=== PATIENT | female | born 1975 | race Caucasian/White ===

== ENCOUNTER 2025-01-11 00:56 | Emergency (ER) | payer OTHER, SELFPAY ==
--- OUTSIDE RECORDS SUMMARY | 2018-12-07 12:42 | XMS_ITS | Continuity of Care Document ---
Author Organization [facility] Address [address] [place] [address] Phone Care Team Providers Care English Instructor Name Role Phone Marion Webb Unavailable Unavaila ble Allergies, Adverse Reactions, Alerts Substance Reaction Status Criticality codeine Active No Information Medications Medication Instructions Dosage Effective Dates (start - stop) Status Comments 05/08 () 1 mg-20 mcg tablet take 1 tablet by oral route every day 1.00 tablet - Active Prilosec 40 mg capsule,delayed release take 1 capsule by oral route 2 times every day before a meal - Active Problems Condition Type Effective Dates (start - stop) Clini david Status Comments No Known Problems Procedures Procedure Date OFFICE/OUTPATIENT VISIT, EST DESTRUCT B9 LESION, 1-14 PREV VISIT, EST, AGE 40-64 PREV VISIT, EST, AGE 40-64 OFFICE/OUTPATIENT VISIT, EST OFFICE/OUTPATIENT VISIT, EST PREVENTIVE NEW AGE 40-64 URINALYSIS NONAUTO W/O SCOPE Condoms Advance Directives Directive Yes / No Effective Date File Name No Information Encounters Encounter Description Practice Location Reason(s) For Visit Diagnoses Date Provider Providers Copied on Encounter [facility], [address], [place], [id number] , [place] tel:[phone] [facility] No Information 9 Alexander Schultz. [address] [place] [address], [id number] , [place]. tel: [phone] [facility], [address], [place], [id number] , [place] tel: [phone] [facility] No Information 9 [facility]. [address], [place], [id number] , [place]. tel: [phone] OFFICE/OUTPA TIENT VISIT, [facility], [address], [place], [id number] , [place] tel: [phone] [facility] TCA (chief complaint) Condyloma acuminatumBody mass index (BMI) 25.0-25.9, adult [facility]. [address], [place], [id number] , [place]. tel: [phone] PREV VISIT, EST, AGE 40-64 [facility], [address], [place], [id number] , [place] tel: [phone] [facility] annual exam (chief complaint) Encntr screen mammogram for malignant neoplasm of breastEncounter for STD screening- STD liefstyle codeEncounter for general enterprise systems engineer exam with abnormal findingsCondyloma acuminatum 8 [facility]. [address], [place], [id number] , [place]. tel: [phone] OFFICE/OUTPA TIENT VISIT, [facility], [address], [place], [id number] , [place] tel: [phone] [facility] tobacco cessation (chief complaint) Tobacco use 6 Jg Quach. [address] [place] [address], [id number] , [place]. tel: [phone] OFFICE/OUTPA TIENT VISIT, [facility], [address] [place] [address], [id number] , [place] tel: [phone] [facility] contraception (chief complaint) Encounter for repeat prescription for BCP 6 [facility] [place]. [address], [place], [id number] , [place]. tel:[phone] PREVENTIVE NEW AGE 40-64 [facility], [address], [place], [id number] , [place] tel: [phone] [facility] est care (chief complaint)libia al exam (chief complaint)cont raception (chief complaint) Encntr screen mammogram for malignant neoplasm of breastDysuriaEnco unter for general enterprise systems engineer exam with abnormal findingsMenorrhag iaEncounter for initial prescription of contraceptive pillsEncounter for screening for HIVEncounter for STD screeningOther abnormal findings on diagnostic imaging of breastVulvovagini tis [facility]. [address], [place], [id number] , [place]. tel: [phone] Family History Family Member Type Diagnosis Age At Onset Maternal grandmother Problem (finding) Cancer, unknown Payers Payer name Insurance type Covered constitution party ID Authordilia chester(s) Lui SHAUN [id number] Social History Type Description Quantity Date Captured Comments Alcohol Use Details Unknown Caffeine Use Details Unknown Tobacco Use Status No Information Smoking Status No Information Sex Female Sexual Orientation Straight or heterosexual Gender Identity Female Chief Complaint And Reason For Visit No Information Reason For Referral Reason For Referral No Information Plan Of Treatment Date Type Action Status Goal Dietary management education , guidance, and counseling completed Goal Tobacco cessation counseling completed Referral Ordered: MAMMOGRAM, SCREENING ordered History Of Present Illness Encounter Date Complaint History Of Prese nt Illness TCA Patient is here to follow up genital warts annual exam Currently pregna nt: no. : 2. Parity: Term: 1. : 1. Livin. The patient states she uses tubal ligation for control. Last LMP was 04/29/2017. The patient no longer uses tobacco. Tobacco cessation has been discussed. She does not drink alcohol. Additional information: Sylvia is here for annual exam and desires to have TCA treatment for genital warts. States she has noticed the warts return over the past month. Desires to restart OCPs to regulate menses. States she used Chantix to stop smoking and has been smoke free for almost 1 year. 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 tobacco cessation Patient here f or smoking cessation. Desires Chantix. Needs to quit smoking due to work policy. GAVIOTA Davison contraception Pt here for 3 mo [facility] BCP follow up. Is currently on and states it is working well. She states her insurance needs it to be written as the 21 day supply to be covered. GAVIOTA Davison contraception (comments) Patient states she is doing well on , but she started smoking and desires to change to progesterone only pills. Desires appt with PCP to restart chantix as she has used that in the past to stop smoking est care Pt here to est c are due to not having a OBGYN est care (comments) Has a BTL bu t desires OCPs to regulate menses. States her menses last for 10 days and is very heavy and painful. Desires STDs screen to include HIV and RPR. C/O vaginal itching and irritation contraception Has had a tubal ligation, but is requesting BCP to help regulate her periods. annual exam Currently pregna nt: no. : 2. Parity: Term: 1. : 1. Livin. Patient is not contemplating . The patient states she uses tubal ligation for control. Last LMP was 05/19/2015. Her menses is regular. The patient does not use tobacco. She does not drink alcohol. Additional information: Pap and cultures today. Pt is in a relationship that she is going to get out of. She did have a one night fling with somebody and is now having discharge and vaginal pain. Urine obtained. Mammogram order provided to client and she will see if her insurnce covers. GAVIOTA Davison. Functional Status Date Functional Assessmen t No Information Instructions Date Instruction Additional Infor ibis Discussed condyloma in detail and TCA applied today. Encouraged to monitor an if persist RTC for repeat treatment of TCA. Discssed HPV in detail. Related to Condyloma acuminatum Dietary management e ducation, guidance, and counseling Related to Body mass index (BMI) 25.0-25.9, adult Giving encouragement to exercise Related to Body mass index (BMI) 25.0-25.9, adult TCA applied to condy izzy and molluscum today and yashetn tolerated procedure well Related to Condyloma acuminatum Cervical cultures se nt to lab. Patient to call in 1 week for results Related to Encntr screen mammogram for malignant neoplasm of breast Encouraged monthly B SE. Encouraged to keep mammogram appt.Recommend calcium 1000mg QD. Encouraged good dietary intake and exercise. Laboratory specimens sent to lab. Patient to call in 2 weeks if desires results. Related to Encounter for general enterprise systems engineer exam with abnormal findings Discussed OCP in [place] and they are working gfreat to regulate her menses. Since she restarted smoking knows she cannot continue combination OCPs and desires to change at this time. Desires appt with PCP to discuss medication to quit smoking. appt with Dr. Gregorio made. Encouraged to start Maria E after current pack of Junel is complete. Take 1 pill po QD at HS. If misses a pill take it as soon as she remembers and if she misses two pills take two pills one day and two pills the next day. Encouraged condoms to prevent STDs. Related to Encounter for repeat prescription for BCP Encouraged to start terazol 7 as Rx Related to Vulvovaginitis Cervical cultures se nt to lab. Patient to call in 1 week for results. Encouraged condoms to prevent STDs. Condoms given to patient today Related to Encounter for STD screening Encouraged monthly B SE. Recommend calcium 1000mg QD. Encouraged good dietary intake and exercise. Laboratory specimens sent to lab. Patient to call in 2 weeks if desires results. Related to Encounter for general enterprise systems engineer exam with abnormal findings HIV and RPR today decline Hep B/ C Related to Encounter for screening for HIV Encouraged to start Junel for control of heavy menses. Encouraged to start OCPs with the onset of her next menses. Take 1 pill po QD at HS. If misses a pill take it as soon as she remembers and if she misses two pills take two pills one day and two pills the next day. Encouraged condoms for back up BC and to prevent STDs. Related to Menorrhagia Assessments Type Assessment Date No Information Patient Care Teams Name Effective Dates (start - stop) Status Members No Information
[2025-01-11 00:59] VITALS: BP 171/84; PULSE 90; TEMP 36.6; O2SAT 97; BMI 25.1
--- NOTE | 2025-01-11 01:28 | XR_ITS ---
The [address] [address] Patient Name: SOLE SIM MRN: [id number] date: 1975 Sex: F Assigned Patient Location: ER Current Patient Location: Accession/Order Number: [id number] Exam Date: 01/11/2025 01:40 Report Date: 01/11/2025 07:39 At the request of: DANIELLE CORTEZ MD Procedure: XR foot LT min 3V XR foot LT min 3V 01/11/2025 1:48 AM SIGNS AND SYMPTOMS: Left leg pain and swelling PROTOCOL: Frontal, lateral, and oblique radiographs of the left foot COMPARISON: None FINDINGS: There is narrowing of the first metatarsophalangeal joint space. There is cortical erosion along the medial margin of the head of the first metatarsal. There is no fracture or dislocation. There is diffuse soft tissue swelling. XR/XR foot LT min 3V IMPRESSION: No acute bony injury. There is diffuse soft tissue swelling. There is cortical erosion along the medial margin of the head of the first metatarsal. Correlation with history of gout is recommended. Impression dictated by: Raphael Pérez M.D. 01/11/2025 7:39 AM Dictation Location: [place] [address] Electronically authenticated by: [id number] Y Date: 01/11/2025 07:39
--- NOTE | 2025-01-11 01:29 | ED_ITS ---
HPI - Extremity Problem General Chief complaint: Extremity Problem, Nontraumatic Stated complaint: LOWER LEFT EXTREMITY PAIN Time Seen by Provider: 01/11/25 00:59 Source: patient Mode of arrival: Wheelchair Limitations: no limitations History of Present Illness HPI Narrative: This 49-year-old female presents for evaluation of left foot pain, redness and swelling for the past 3 days. [place] felt a stinging sensation in her foot approximately 3 days ago. She does not know if she got bit by a spider or possibly stung by a bee but since that time she has had increasing redness pain and swelling in the left foot. She has had cellulitis in the past. She does not have a history of diabetes. She also complains of left hip pain and has a history of sciatica. She has not had any fever. The patient states she was driving back from the [facility] this morning where she went to visit her son at college and could not tolerate the pain in the left foot. She does not have any left calf pain or swelling. She denies a history of tobacco use. She denies any chest pain or shortness of breath. Related Data Allergies Allergy/AdvReac Type Severity Reaction Status Date / Time codeine Allergy Mild Hives Verified 01/11/25 01:05 Review of Systems ROS Status of ROS 10 or more systems reviewed and unremark able except as noted in history and below PFSH PFSH Social History Little interest or pleasure in doing things: not at all Feeling down, depressed, or hopeless: not at all Exam Narrative Exam Narrative: Vital signs and Nursing Notes reviewed: Patient is afebrile with a normal pulse, blood pressure is elevated 171/84, she is not hypoxic with pulse ox of 97% on room air General: Awake, alert, oriented, nontoxic but tearful at times, no respiratory distress HEENT: Normocephalic atraumatic, mucous membranes are moist and pink, eyes are clear, normal conjunctiva, vision is grossly intact Chest: Lungs are clear to auscultation with good air entry, there is no wheezing rhonchi or rales appreciated no accessory muscle use, patient is speaking in complete sentences-no chest wall tenderness to palpation CVS: Regular rate and rhythm S1-S2, no murmurs rubs or gallops, pulses are brisk and equal bilaterally Extremities: There is redness, mild swelling and exquisite tenderness to the dorsal aspect of the left foot that wraps around medially but is not circumferential. This does not involve the lateral malleolus. Feet are warm and sensate. Capillary refill is normal. Dorsalis pedis and posterior tibialis pulses are brisk and equal bilaterally. There is no swelling to the calf. There is no lymphangitic streaking. There is no notable concerns for the left knee. There is tenderness in the left lateral buttock area. Skin: Skin is normal in appearance with the exception of the left foot where there is redness, swelling and tenderness over the dorsal aspect of the left foot extending medially Neuro: No focal deficits Constitutional Vital Signs, click to edit/add: Last Vital Signs Temp 97.9 F 01/11/25 00:59 Pulse 90 01/11/25 00:59 Resp 18 01/11/25 00:59 BP 171/84 H 01/11/25 00:59 Pulse Ox 97 01/11/25 00:59 O2 Del Method Room Air 01/11/25 00:59 Course Vital Signs Vital signs: Vital Signs Temperature 97.9 F 01/11/25 00:59 Pulse Rate 90 01/11/25 00:59 Respiratory Rate 18 01/11/25 00:59 Blood Pressure 171/84 H 01/11/25 00:59 Pulse Oximetry 97 01/11/25 00:59 Oxygen Delivery Method Room Air 01/11/25 00:59 Temperature 97.9 F 01/11/25 00:59 Pulse Rate 90 01/11/25 00:59 Respiratory Rate 18 01/11/25 00:59 Blood Pressure 171/84 H 01/11/25 00:59 Pulse Oximetry 97 01/11/25 00:59 Oxygen Delivery Method Room Air 01/11/25 00:59 MDM - Extremity (Nontraumatic) MDM Narrative Medical decision making narrative: This 49-year-old female presents for evaluation of left foot pain redness and swelling for the past 3 days. She was out in her yard and felt something sting or bite her. Since that time she has had progressive redness and swelling on the dorsal aspect of her right foot and the medial aspect of her right foot. A line was drawn around this so the patient can follow the development. Multiple attempts at an IV were placed for blood draws and pain medicine and antibiotic administration. After several attempts the patient requested us to stop and requested IM injections. She was given an IM dose of Toradol and Solu-Medrol and oral Augmentin. She will be discharged home with prescription for Augmentin to use for the next 10 days, [place] for pain and Zofran for nausea. I did suggest she follow-up closely with outpatient family medicine and return to the emergency department for worsening symptoms or any concerns. At this time she is afebrile with normal vital signs. There is no lymphangitic streaking, x-ray of the left foot does not show any bony erosion but does show some mild soft tissue swelling. Discharge Plan Discharge Chief Complaint: Extremity Problem, Nontraumatic Clinical Impression: Cellulitis of foot without toes, Sciatica of left side Patient Disposition: Home, Self-Care Time of Disposition Decision: 02:25 Condition: Good Print Language: Jordanian Instructions: Cellulitis (ED), Sciatica (ED) Referrals: Physician,Non-Staff, MD [Primary Care Provider] - 1 week
--- OUTSIDE RECORDS SUMMARY | 2025-01-11 01:49 | XMS_ITS | Encounter Summary ---
Author Organization [facility] Address [address] [place] [address] Phone Care Team Providers Care Event Services Manager Name Role Phone Glenda Hebert MD Primary Care Provide r Macy Naqvi MD Unavailable Marco Agarwal MD Unavailable [phone] Marco Agarwal MD Unavailable [phone] Encounter Details Date Type Department Care Team (Late st Contact Info) Description 02/19/2023 Patient Risk Score ACO Care Management [address] [facility] [address] [place] [address] Social History Tobacco Use Types Packs/Day Years Used Date Smoking Tobacco: Never Assessed Comments Unknown Sex and Gender Information Value Date Recorded Sex Assigned at Not on file Legal Sex Female 4:57 AM EST Gender Identity Not on file Sexual Orientation Not on file documented as of this encounter Plan of Treatment Not on file documented as of this encounter Visit Diagnoses Not on filedocumented in this encounter Care Teams Event Services Manager Relationship Specialty Start Date End Date Glenda Hebert MD [address] [place] [address] PCP - General 08/26/18 [place] [address] [address] [place] [address] PCP - Employee ACO PCP 10/17/22 Marco Agarwal MD [address] [facility], [facility] [address] [place] [address] PCP - Employee ACO PCP 04/19/23 Marco Agarwal MD [address] [facility], [facility] [address] [place] [address] PCP - Employee ACO PCP 03/19/24 documented as of this encounter
--- OUTSIDE RECORDS SUMMARY | 2025-01-11 01:49 | XMS_ITS | Clinical Summary ---
Author Organization [facility] Healthcare Address [address] [place] [address] Care Team Providers Care Power Equipment Technology Instructor Name Role Phone Glenda Hebert MD Unavailable [phone] Allergies Active Allergy Reactions Criticality Noted Date Comments Codeine Dizziness,Hives,GI intolerance High 11/29/2019 Other Reaction(s): hives Medications potassium chloride CR (Klor-Con M20) 20 MEQ ER tabletIndications: Low serum potassium TAKE 1 TABLET BY MOUTH TWICE DAILY WITH FOOD 180 tablet 1 11/04/19 23 Active Additional Information Patient not taking.Reported on 11/01/2024 predniSONE (Deltasone) 50 MG tabletIndications: Chronic low back pain, unspecified back pain laterality, unspecified whether sciatica present TAKE 1 TABLET BY MOUTH ONCE DAILY FOR 5 DAYS 5 tablet 1 11/04/19 23 Active Additional Information Patient not taking.Reported on 11/01/2024 amphetamine-dextro amphetamine (Adderall) 30 MG tablet Instructions: TAKE 1 TABLET BY MOUTH DAILY 08/15/19 25 Active clonazePAM (KlonoPIN) 0.25 MG disintegrating tablet TAKE 1 TABLET BY MOUTH ONCE DAILY NEEDED 02/07/20 24 Active sertraline (Zoloft) 100 MG tablet Take 100 mg by mouth Daily 08/15/19 25 Active traZODone (Desyrel) 50 MG tablet Instructions: TAKE 1 & 1/2 (ONE AND ONE-HALF) TABLETS BY MOUTH NIGHTLY 08/15/19 25 Active cloNIDine (Catapres) 0.1 MG tabletIndications: Elevated blood pressure reading Take 1 tablet (0.1 mg) by mouth 2 (two) times a day as needed for high blood pressure for up to 3 days 6 tablet 08/22/19 25 Active Additional Information Patient not taking.Reported on 11/01/2024 ARIPiprazole (Abilify) 10 MG disintegrating tablet Take 10 mg by mouth Daily Active Encounters Date Type Department Care Team Description 11/03/2024 Telephone [facility] [address] [place] [id number] Jennyfer Roa MA 11/01/2024 4:30 PM EDT Office Visit [facility] [address] [place] [id number] Ben Amezquita DO Skin ulcer, unspecified ulcer stage (HCC); Cellulitis, unspecified cellulitis site 11/01/2024 Travel from Last 3 Months Social History Tobacco Use Types Packs/Day Years Used Date Smoking Tobacco: Never Assessed Comments Unknown Sex and Gender Information Value Date Recorded Sex Assigned at Not on file Legal Sex Female 6:44 PM EDT Gender Identity Not on file Sexual Orientation Not on file Last Filed Vital Signs Vital Sign Reading Time Taken Comments Blood Pressure 118/78 11/01/2024 4:31 PM EDT Pulse 92 11/01/2024 4:31 PM EDT Temperature 37 C (98.6 F) 11/01/2024 4:42 PM EDT Respiratory Rate - - Oxygen Saturation 96% 11/01/2024 4:31 PM EDT Inhaled Oxygen Concentration - - Weight 77.1 kg (170 lb) 11/01/2024 4:31 PM EDT Height 179.1 cm (5' 10.5 ) 03/05/2020 12:[address] Body Mass Index 24.05 03/05/2020 12:00 PM EST Plan of Treatment Not on file Procedures Procedure Name Priority Date/Time Associated Diagnosis Comments DEEP/NON-HEALING WOUND (HTRX) Routine 11/01/2024 4:54 PM EDT Skin ulcer, unspecified ulcer stage (HCC) from Last 3 Months Results * (ABNORMAL) DEEP/NON-HEALING WOUND (HTRX) (11/01/2024 4:54 PM EDT) Pathologist [facility] VARICELLA ZOSTER VIRUS (HUMAN HERPESVIRUS 3) (CHRONIC WOUND/ULCER) 0 23.000 - 31.574 ppm 11/03/2024 1:02 PM EDT [facility] VARICELLA ZOSTER VIRUS (HUMAN HERPESVIRUS 3) (CHRONIC WOUND/ULCER) Not Detected 23.000 - 31.574 ppm 11/03/2024 1:02 PM EDT [facility] STREPTOCOCCUS PYOGENES (GROUP A STREP) (CHRONIC WOUND/ULCER) 19.452(A) 19.961 - 24.689 ppm 11/03/2024 1:02 PM EDT [facility] STREPTOCOCCUS PYOGENES (GROUP A STREP) (CHRONIC WOUND/ULCER) Detected(A) 19.961 - 24.689 ppm 11/03/2024 1:02 PM EDT [facility] STREPTOCOCCUS AGALACTIAE (GROUP B STREP) (CHRONIC WOUND/ULCER) 0 19.961 - 24.689 ppm 11/03/2024 1:02 PM EDT [facility] STREPTOCOCCUS AGALACTIAE (GROUP B STREP) (CHRONIC WOUND/ULCER) Not Detected 19.961 - 24.689 ppm 11/03/2024 1:02 PM EDT [facility] STAPHYLOCOCCUS AUREUS (CHRONIC WOUND/ULCER) 26.169(A) 19.961 - 24.689 ppm 11/03/2024 1:02 PM EDT [facility] STAPHYLOCOCCUS AUREUS (CHRONIC WOUND/ULCER) Detected(A) 19.961 - 24.689 ppm 11/03/2024 1:02 PM EDT [facility] STAPHYLOCOCCUS EPIDERMIDIS, HAEMOLYTICUS, LUGDUNENSIS, SAPROPHYTICUS (CHRON 0 19.961 - 24.689 ppm 11/03/2024 1:02 PM EDT [facility] STAPHYLOCOCCUS EPIDERMIDIS, HAEMOLYTICUS, LUGDUNENSIS, SAPROPHYTICUS (CHRON Not Detected 19.961 - 24.689 ppm 11/03/2024 1:02 PM EDT [facility] PSEUDOMONAS AERUGINOSA (CHRONIC WOUND/ULCER) 0 19.961 - 24.689 ppm 11/03/2024 1:02 PM EDT [facility] PSEUDOMONAS AERUGINOSA (CHRONIC WOUND/ULCER) Not Detected 19.961 - 24.689 ppm 11/03/2024 1:02 PM EDT [facility] PROTEUS MIRABILIS, VULGARIS (CHRONIC WOUND/ULCER) 0 19.961 - 24.689 ppm 11/03/2024 1:02 PM EDT [facility] PROTEUS MIRABILIS, VULGARIS (CHRONIC WOUND/ULCER) Not Detected 19.961 - 24.689 ppm 11/03/2024 1:02 PM EDT [facility] KLEBSIELLA PNEUMONIAE, OXYTOCA (CHRONIC WOUND/ULCER) 0 19.961 - 24.689 ppm 11/03/2024 1:02 PM EDT [facility] KLEBSIELLA PNEUMONIAE, OXYTOCA (CHRONIC WOUND/ULCER) Not Detected 19.961 - 24.689 ppm 11/03/2024 1:02 PM EDT [facility] ESCHERICHIA COLI (CHRONIC WOUND/ULCER) 0 19.961 - 24.689 ppm 11/03/2024 1:02 PM EDT [facility] ESCHERICHIA COLI (CHRONIC WOUND/ULCER) Not Detected 19.961 - 24.689 ppm 11/03/2024 1:02 PM EDT [facility] CLOSTRIDIUM PERFRINGENS, NOVYI, SEPTICUM (CHRONIC WOUND/ULCER) 0 19.961 - 24.689 ppm 11/03/2024 1:02 PM EDT [facility] CLOSTRIDIUM PERFRINGENS, NOVYI, SEPTICUM (CHRONIC WOUND/ULCER) Not Detected 19.961 - 24.689 ppm 11/03/2024 1:02 PM EDT [facility] CUTIBACTERIUM (PROPIONIBACTERIUM) ACNES (CHRONIC WOUND/ULCER) 0 19.961 - 24.689 ppm 11/03/2024 1:02 PM EDT [facility] CUTIBACTERIUM (PROPIONIBACTERIUM) ACNES (CHRONIC WOUND/ULCER) Not Detected 19.961 - 24.689 ppm 11/03/2024 1:02 PM EDT [facility] BACTEROIDES FRAGILIS, VULGATUS (CHRONIC WOUND/ULCER) 0 19.961 - 24.689 ppm 11/03/2024 1:02 PM EDT [facility] BACTEROIDES FRAGILIS, VULGATUS (CHRONIC WOUND/ULCER) Not Detected 19.961 - 24.689 ppm 11/03/2024 1:02 PM EDT [facility] CORYNEBACTERIUM JEIKEIUM, STRIATUM, TUBERCULOSTEARICUM (CHRONIC WOUND/ULCER 26.985(A) 19.961 - 24.689 ppm 11/03/2024 1:02 PM EDT [facility] CORYNEBACTERIUM JEIKEIUM, STRIATUM, TUBERCULOSTEARICUM (CHRONIC WOUND/ULCER Detected(A) 19.961 - 24.689 ppm 11/03/2024 1:02 PM EDT [facility] VIBRIO CHOLERAE, PARAHAEMOLYTICUS, VULNIFICUS (CHRONIC WOUND/ULCER) 0 23.000 - 31.311 ppm 11/03/2024 1:02 PM EDT [facility] VIBRIO CHOLERAE, PARAHAEMOLYTICUS, VULNIFICUS (CHRONIC WOUND/ULCER) Not Detected 23.000 - 31.311 ppm 11/03/2024 1:02 PM EDT [facility] ENTEROCOCCUS FAECALIS, FAECIUM (CHRONIC WOUND/ULCER) 0 19.961 - 24.689 ppm 11/03/2024 1:02 PM EDT [facility] ENTEROCOCCUS FAECALIS, FAECIUM (CHRONIC WOUND/ULCER) Not Detected 19.961 - 24.689 ppm 11/03/2024 1:02 PM EDT [facility] ENTEROBACTER CLOACAE COMPLEX, KLEBSIELLA (ENTEROBACTER) AEROGENES (CHRONIC 0 19.961 - 24.689 ppm 11/03/2024 1:02 PM EDT [facility] ENTEROBACTER CLOACAE COMPLEX, KLEBSIELLA (ENTEROBACTER) AEROGENES (CHRONIC Not Detected 19.961 - 24.689 ppm 11/03/2024 1:02 PM EDT [facility] SERRATIA MARCESCENS (CHRONIC WOUND/ULCER) 0 19.961 - 24.689 ppm 11/03/2024 1:02 PM EDT [facility] SERRATIA MARCESCENS (CHRONIC WOUND/ULCER) Not Detected 19.961 - 24.689 ppm 11/03/2024 1:02 PM EDT [facility] CITROBACTER FREUNDII (CHRONIC WOUND/ULCER) 0 19.961 - 24.689 ppm 11/03/2024 1:02 PM EDT [facility] CITROBACTER FREUNDII (CHRONIC WOUND/ULCER) Not Detected 19.961 - 24.689 ppm 11/03/2024 1:02 PM EDT [facility] ACINETOBACTER BAUMANNII (CHRONIC WOUND/ULCER) 0 19.961 - 24.689 ppm 11/03/2024 1:02 PM EDT [facility] ACINETOBACTER BAUMANNII (CHRONIC WOUND/ULCER) Not Detected 19.961 - 24.689 ppm 11/03/2024 1:02 PM EDT [facility] HERPES SIMPLEX VIRUS 1 0 23.000 - 31.899 ppm 11/03/2024 1:02 PM EDT [facility] HERPES SIMPLEX VIRUS 1 Not Detected 23.000 - 31.899 ppm 11/03/2024 1:02 PM EDT [facility] HERPES SIMPLEX VIRUS 2 0 23.000 - 31.675 ppm 11/03/2024 1:02 PM EDT [facility] HERPES SIMPLEX VIRUS 2 Not Detected 23.000 - 31.675 ppm 11/03/2024 1:02 PM EDT [facility] P. ANAEROBIUS, P. ASACCAROLYTICUS, F. MAGNA, A. PREVOTII 0 19.961 - 24.689 ppm 11/03/2024 1:02 PM EDT [facility] P. ANAEROBIUS, P. ASACCAROLYTICUS, F. MAGNA, A. PREVOTII Not Detected 19.961 - 24.689 ppm 11/03/2024 1:02 PM EDT [facility] Wound 11/01/2024 4:54 PM EDT 11/03/2024 3:08 AM EDT us Ben Amezquita DO LAB BLOOD ORDERABLES Final Result [facility] [address] [place] [address] from Last 3 Months Insurance [employer] Care Teams Power Equipment Technology Instructor Relationship Specialty Start Date End Date Glenda Hebert MD [address] [place] [address] Referring Physician Family Medicine 08/21/24
--- OUTSIDE RECORDS SUMMARY | 2025-01-11 01:49 | XMS_ITS | Encounter Summary ---
Author Organization [facility] Address [address] [place] [place] [address] Care Team Providers Care Supervisory Geographer Name Role Phone Glenda Hebert MD Unavailable [phone] Reason for Visit * Reason Comments Med Change Request Encounter Details Date Type Department Care Team (Late st Contact Info) Description 08/21/2024 Refill [facility] [address] [facility] [address] [place] [phone] Chang Rajan DO [address] [facility] [address] [place] [address] Cellulitis of left lower extremity Social History Tobacco Use Types Packs/Day Years Used Date Smoking Tobacco: Never Assessed Comments Unknown Sex and Gender Information Value Date Recorded Sex Assigned at Not on file Legal Sex Female 6:44 PM EDT Gender Identity Not on file Sexual Orientation Not on file documented as of this encounter Miscellaneous Notes * Telephone Encounter - Chang Rajan DO - 08/22/2024 9:10 AM EDT Yes it is okay to change that documented in this encounter Plan of Treatment Not on file documented as of this encounter Visit Diagnoses Diagnosis Cellulitis of left lower extremity documented in this encounter Care Teams Supervisory Geographer Relationship Specialty Start Date End Date Glenda Hebert MD [address] [facility] [place] [address] Referring Physician Family Medicine 08/21/24 documented as of this encounter
--- OUTSIDE RECORDS SUMMARY | 2025-01-11 01:49 | XMS_ITS | Encounter Summary ---
Author Organization [facility] Address [address] [place] [address] Phone Care Team Providers Care Synthetic Chemist Name Role Phone Glenda Hebert MD Primary Care Provide r Macy Naqvi MD Unavailable [phone] Marco Agarwal MD Unavailable [phone] Marco Agarwal MD Unavailable [phone] Encounter Details Date Type Department Care Team (Late st Contact Info) Description 03/21/2023 Patient Risk Score ACO Care Management [address] [facility] [address] [place] [address] Social History Tobacco Use Types [...] on filedocumented in this encounter Care Teams Synthetic Chemist Relationship Specialty Start Date End Date Glenda Hebert MD [address] [place] [address] PCP - General 08/26/18 [place] [address] [place] [address] PCP - Employee ACO PCP 10/17/22 Marco Agarwal MD [address] [facility], [facility] [address] [place] [address] PCP - Employee ACO PCP 04/19/23 Marco Agarwal MD [address] [facility], [facility] [address] [place] [address] PCP - Employee ACO PCP 03/19/24 documented as of this encounter
--- OUTSIDE RECORDS SUMMARY | 2025-01-11 01:49 | XMS_ITS | Encounter Summary ---
Author Organization [facility] Address [address] [place] [address] Phone Care Team Providers Care Rn Procedure Name Role Phone Glenda Hebert MD Primary Care Provide r Macy Naqvi MD Unavailable Marco Agarwal MD Unavailable [phone] Marco Agarwal MD Unavailable [phone] Encounter Details Date Type Department Care Team (Late st Contact Info) Description 11/19/2022 Patient Risk Score ACO Care Management [address] [facility] [address] [place] [address] Social History Tobacco Use Types [...] on filedocumented in this encounter Care Teams Rn Procedure Relationship Specialty Start Date End Date Glenda Hebert MD [address] [place] [address] PCP - General 08/26/18 [place] [address] [place] [address] PCP - Employee ACO PCP 10/17/22 Marco Agarwal MD [address] [facility], [facility] [address] [place] [address] PCP - Employee ACO PCP 04/19/23 Marco Agarwal MD [address] [facility], [facility] [address] [place] [address] PCP - Employee ACO PCP 03/19/24 documented as of this encounter
--- OUTSIDE RECORDS SUMMARY | 2025-01-11 01:49 | XMS_ITS | Clinical Summary ---
Author Organization [facility] Address [address] [place] [address] Phone Care Team Providers Care Honeycomb Blanket Maker Name Role Phone Glenda Hebert MD Primary Care Provide r Allergies Active Allergy Reactions Criticality Noted Date Comments Codeine Dizziness,Hives,Nausea/vomiting 11/17 Medications traZODone (Desyrel) 150 mg tablet TAKE 1 TABLET BY MOUTH EVERY EVENING 30 tablet 2 08/17/2022 Active omeprazole (PriLOSEC) [address] capsule TAKE 1 CAPSULE BY MOUTH ONCE DAILY 120 capsule 07/30/2022 Active gabapentin (Neurontin) 300 mg capsuleIndicati ons:Sciatica of left side Take 1 capsule (300 mg) by mouth once daily for 7 days. 7 capsule 09/28/2023 3:24 PM EDT 09/28/2023 Active estradiol (Estrace) 1 mg tabletIndicatio ns:Vasomotor flushing Take 1 tablet (1 mg) by mouth once daily. 90 tablet 3 11/22/2023 1:26 PM EDT 11/17/2023 Active estradiol (Estrace) 0.01 % (0.1 mg/gram) vaginal creamIndication s:Dysuria Apply a pea sized amount of cream to vulva nightly. 34 g 3 12/14/2023 Active Social History Tobacco Use Types Packs/Day Years Used Date Smoking Tobacco: Every Day Cigarettes Smokeless Tobacco: Never Tobacco Cessation:Ready to Q uit: Not Asked; Counseling Given: Not Answered Alcohol Use Standard Drinks/Week Comments Never 0 (1 standard drink = 0.6 oz pur e alcohol) Comments No Sex and Gender Information Value Date Recorded Sex Assigned at Not on file Legal Sex Female 4:57 AM EST Gender Identity Not on file Sexual Orientation Not on file Last Filed Vital Signs Vital Sign Reading Time Taken Comments Blood Pressure 147/77 11/23/2023 7:48 AM EDT Pulse 85 11/23/2023 7:48 AM EDT Temperature 36.7 C (98.1 F) 11/23/2023 7:48 AM EDT Respiratory Rate 16 11/23/2023 8:39 AM EDT Oxygen Saturation 96% 11/23/2023 8:39 AM EDT Inhaled Oxygen Concentration - - Weight 74.8 kg (165 lb) 11/23/2023 7:48 AM EDT Height 177.8 cm (5' 10 ) 11/23/2023 7:48 AM EDT Body Mass Index 23.68 11/23/2023 7:48 AM EDT Plan of Treatment Health Maintenance Due Date Last Done Comments CT Colonography 1974 FIT-DNA (Cologuard) 1974 FIT 1975 HIV Screening 1975 Lipid Panel 1974 Sigmoidoscopy 1974 Yearly Adult Physical 1974 MMR Vaccines (1 of 1 - Standard series) 1975 Hepatitis C Screening 02/14/1992 Hepatitis B Vaccines (1 of 3 - 19+ 3-dose series) 1993 Pneumococcal Vaccine (1 of 2 - PCV) 1993 Cervical Cancer Screening 1995 HPV/Cotest 1995 Pap Smear 1995 DTaP/Tdap/Td Vaccines (1 - Tdap) 02/14/1996 Mammogram 06/06/2022 06/06/2021, 06/06/2021 Zoster Vaccines (1 of 2) 02/14/2024 COVID-19 Vaccine (1 - 2023-2 5 season) 2024 Influenza Vaccine (#1) 2024 01/22/2020 Colonoscopy 07/11/2032 07/11/2022, 07/11/2022, 07/11/2022 Colorectal Cancer Screening 07/11/2032 Irritable Bowel Syndrome Discontinued 023, 07/11/2022 HIB Vaccines Aged Out No longer eligi ble based on patient's age to complete this topic HPV Vaccines Aged Out No longer eligi ble based on patient's age to complete this topic Hepatitis A Vaccines Aged Out No long er eligible based on patient's age to complete this topic IPV Vaccines Aged Out No longer eligi ble based on patient's age to complete this topic Meningococcal Vaccine Aged Out No todd liang eligible based on patient's age to complete this topic Rotavirus Vaccines Aged Out No longer eligible based on patient's age to complete this topic Medical Devices Implanted Type Area Sheet Metal Supervisor Device Identifier Shelf Expiration Date Model / Serial / Lot Sling System, Mid Uretheral, [employer] Suprapubic Case [id number] Implanted:Qty: 1 on 03/19/2020 by Ziggy Landa MD General Urology [employer] 10/17/2022 [id number] / / [id number] Description:Converted from [facility] Acute. Please see archived information for full log information. Procedures Procedure Name Priority Date/Time Associated Diagnosis Comments COLONOSCOPY Routine 07/11/2022 8:14 AM EDT DIGITAL MAMM SCREENING Routine 06/06/2021 4:29 PM EST Encounter for screening mammogram for malignant neoplasm of breast from Last 3 Months or Most Recently Relevant to Health Maintenance Results * Colonoscopy (07/11/2022 8:14 AM EDT) Anatomical Region Laterality Modality Endoscopy 07/11/2022 8:14 AM EDT Narrative 10/02/2022 11:46 PM EDT Patient Name: Karina Lugo Procedure Date: 07/11/2022 8:14 AM Date of : 1975 Admit Type: Outpatient Site: [facility] (Former[facility]) Room 2 Ethnicity: Not or Race: White Attending MD: Haylee العلي MD, [id number] Procedure: Colonoscopy Indications: Screening for colorectal malignant neoplasm, This is the patient's first colonoscopy Patient Profile: This is a 47 year old female. Outpatient Colonoscopy Providers: Haylee العلي MD (Doctor) Gastroenterology, Olga Dyer RN (Nurse) , Jennie Watts, Livery Car Driver Referring: Glenda Hebert Medicines: Monitored Anesthesia Care Complications: No immediate complications. Procedure: Pre-Anesthesia Assessment: - Prior Aspirin/ NSAID therapy: The patient has taken no aspirin or NSAID medications. - Prior to the procedure, a History and Physical was performed, and patient medications and allergies were reviewed. The patient's tolerance of previous anesthesia was also reviewed. The risks and benefits of the procedure and the sedation options and risks were discussed with the patient. All questions were answered, and informed consent was obtained. ASA Grade Assessment: II - A patient with mild systemic disease. After reviewing the risks and benefits, the patient was deemed in satisfactory condition to undergo the procedure. After I obtained informed consent, the scope was passed under direct vision. Throughout the procedure, the patient's blood pressure, pulse, and oxygen saturations were monitored continuously. The pediatric colonoscope was introduced through the anus and advanced to the cecum, identified by appendiceal orifice and ileocecal valve. The colonoscopy was performed without difficulty. The patient tolerated the procedure well. The quality of the bowel preparation was good. The quality of the bowel preparation was evaluated using the BBPS ([place] Bowel Preparation Scale) with scores of: Right Colon = 3, Transverse Colon = 3 and Left Colon = 3 (entire mucosa seen well with no residual staining, small fragments of stool or opaque liquid). The total BBPS score equals 9. The terminal ileum, ileocecal valve, appendiceal orifice, and rectum were photographed. Findings: No masses on digital rectal exam The terminal ileum appeared normal. External hemorrhoids were found during retroflexion. Two sessile polyps were found in the cecum. The polyps were 8 to 10 mm in size. These polyps were removed with a cold snare. Resection and retrieval were complete. The pathology specimen was placed into Bottle A. A 10 mm polyp was found in the ascending colon. The polyp was sessile. The polyp was removed with a piecemeal technique using a cold snare. Resection and retrieval were complete. The pathology specimen was placed into Bottle B. To prevent bleeding after the polypectomy, one hemostatic clip was successfully placed. There was no bleeding at the end of the procedure. A 10 mm polyp was found in the hepatic flexure. The polyp was sessile. The polyp was removed with a cold snare. Resection and retrieval were complete. The pathology specimen was placed into Bottle C. Two sessile polyps were found in the transverse colon. The polyps were 6 to 7 mm in size. These polyps were removed with a cold snare. Resection and retrieval were complete. The pathology specimen was placed into Bottle D. There was a large lipoma, in the ascending colon. Estimated Blood Loss: Estimated blood loss was minimal. Impression: - The examined portion of the ileum was normal. - External hemorrhoids. - Two 8 to 10 mm polyps in the cecum, removed with a cold snare. Resected and retrieved. - One 10 mm polyp in the ascending colon, removed piecemeal using a cold snare. Resected and retrieved. Clip was placed. - One 10 mm polyp at the hepatic flexure, removed with a cold snare. Resected and retrieved. - Two 6 to 7 mm polyps in the transverse colon, removed with a cold snare. Resected and retrieved. - Large lipoma in the ascending colon. Recommendation: - Patient has a contact number available for emergencies. The signs and symptoms of potential delayed complications were discussed with the patient. Return to normal activities tomorrow. Written discharge instructions were provided to the patient. - Low residue diet for 2 days. - Continue present medications. - No aspirin, ibuprofen, naproxen, or other non-steroidal anti-inflammatory drugs for 7 days after polyp removal. - Await pathology results. - Repeat colonoscopy in 3 years for surveillance based on pathology results. - Return to primary care physician. Procedure Code(s): --- Professional --- 54588, Colonoscopy, flexible; with removal of tumor(s), polyp(s), or other lesion(s) by snare technique Diagnosis Code(s): --- Professional --- Z12.11, Encounter for screening for malignant neoplasm of colon K64.4, Residual hemorrhoidal skin tags D12.0, Benign neoplasm of cecum D12.3, Benign neoplasm of transverse colon (hepatic flexure or splenic flexure) D12.2, Benign neoplasm of ascending colon D17.5, Benign lipomatous neoplasm of intra-abdominal organs CPT copyright 2021 [employer]. All rights reserved. The codes documented in this report are preliminary and upon health care coach review may be revised to meet current compliance requirements. Attending Participation: I personally performed the entire procedure. Haylee العلي MD 07/11/2022 9:51:28 AM This report has been signed electronically. Number of Addenda: 0 Note Initiated On: 07/11/2022 8:14 AM Scope Withdrawal Time 0 hours 17 minutes 39 seconds Total Procedure Duration Time 0 hours 21 minutes 8 seconds Procedure Note Haylee العلي MD - 03/14/2024 Patient Name: Karina Lugo Procedure Date: 07/11/2022 8:14 AM Date of : 1975 Admit Type: Outpatient Site: [facility] ([facility] Room 2 Ethnicity: Not or Race: White Attending MD: Haylee العلي MD, [id number] Procedure: Colonoscopy Indications: Screening for colorectal malignant neoplasm, Thisis the patient's first colonoscopy Patient Profile: This is a 47 year old female. OutpatientColonoscopy Providers: Haylee العلي MD (Doctor) Gastroenterology,Olga Dyer RN (Nurse) , Jennie Watts, Livery Car Driver Referring: Glenda Hebert Medicines: Monitored Anesthesia Care Complications: No immediate complications. Procedure: Pre-Anesthesia Assessment: - Prior Aspirin/ NSAID therapy: The patient hastaken no aspirin or NSAID medications. - Prior to the procedure, a History and Physicalwas performed, and patient medications and allergieswere reviewed. The patient's tolerance of previous anesthesia was also reviewed. The risks andbenefits of the procedure and the sedation options and risks were discussed with the patient. All questions were answered, and informed consent was obtained. ASAGrade Assessment: II - A patient with mild systemicdisease. After reviewing the risks and benefits, the patient was deemed in satisfactory condition to undergo the procedure. After I obtained informed consent, the scope was passed under direct vision. Throughout theprocedure, the patient's blood pressure, pulse, and oxygen saturations were monitored continuously. Thepediatric colonoscope was introduced through the anus and advanced to the cecum, identified by appendiceal orifice and ileocecal valve. The colonoscopy was performed without difficulty. The patient tolerated the procedure well. The quality of the bowel preparation was good. The quality of the bowel preparation was evaluated using the BBPS ([place]Bowel Preparation Scale) with scores of: Right Colon = 3, Transverse Colon = 3 and Left Colon = 3 (entiremucosa seen well with no residual staining, smallfragments of stool or opaque liquid). The total BBPS score equals 9. The terminal ileum, ileocecal valve, appendiceal orifice, and rectum werephotographed. Findings: No masses on digital rectal exam The terminal ileum appeared normal. External hemorrhoids were found during retroflexion. Two sessile polyps were found in the cecum. The polyps were 8 to 10mm in size. These polyps were removed with a cold snare. Resection and retrieval were complete. The pathology specimen was placed intoBottle A. A 10 mm polyp was found in the ascending colon. The polyp wassessile. The polyp was removed with a piecemeal technique using a cold snare. Resection and retrieval were complete. The pathology specimen wasplaced into Bottle B. To prevent bleeding after the polypectomy, onehemostatic clip was successfully placed. There was no bleeding at the end of the procedure. A 10 mm polyp was found in the hepatic flexure. The polyp wassessile. The polyp was removed with a cold snare. Resection and retrieval were complete. The pathology specimen was placed into Bottle C. Two sessile polyps were found in the transverse colon. The polypswere 6 to 7 mm in size. These polyps were removed with a cold snare.Resection and retrieval were complete. The pathology specimen was placed into Bottle D. There was a large lipoma, in the ascending colon. Estimated Blood Loss: Estimated blood loss was minimal. Impression: - The examined portion of the ileum was normal. - External hemorrhoids. - Two 8 to 10 mm polyps in the cecum, removed witha cold snare. Resected and retrieved. - One 10 mm polyp in the ascending colon, removed piecemeal using a cold snare. Resected andretrieved. Clip was placed. - One 10 mm polyp at the hepatic flexure, removedwith a cold snare. Resected and retrieved. - Two 6 to 7 mm polyps in the transverse colon, removed with a cold snare. Resected andretrieved. - Large lipoma in the ascending colon. Recommendation: - Patient has a contact number available for emergencies. The signs and symptoms of potential delayed complications were discussed with thepatient. Return to normal activities tomorrow. Written discharge instructions were provided to thepatient. - Low residue diet for 2 days. - Continue present medications. - No aspirin, ibuprofen, naproxen, or other non-steroidal anti-inflammatory drugs for 7 daysafter polyp removal. - Await pathology results. - Repeat colonoscopy in 3 years for surveillancebased on pathology results. - Return to primary care physician. Procedure Code(s): --- Professional --- 85270, Colonoscopy, flexible; with removal of tumor(s), polyp(s), or other lesion(s) by snare technique Diagnosis Code(s): --- Professional --- Z12.11, Encounter for screening for malignantneoplasm of colon K64.4, Residual hemorrhoidal skin tags D12.0, Benign neoplasm of cecum D12.3, Benign neoplasm of transverse colon (hepatic flexure or splenic flexure) D12.2, Benign neoplasm of ascending colon D17.5, Benign lipomatous neoplasm ofintra-abdominal organs CPT copyright 2021 [employer]. All rights reserved. The codes documented in this report are preliminary and upon health care coach reviewmay be revised to meet current compliance requirements. Attending Participation: I personally performed the entire procedure. Haylee العلي MD 07/11/2022 9:51:28 AM This report has been signed electronically. Number of Addenda: 0 Note Initiated On: 07/11/2022 8:14 AM Scope Withdrawal Time 0 hours 17 minutes 39 seconds Total Procedure Duration Time 0 hours 21 minutes 8 seconds us Glenda Hebert MD ENDOSCOPY PROCEDURE O RDERABLES Edited Result - Final * DIGITAL MAMM SCREENING (06/06/2021 4:29 PM EST) Anatomical Region Laterality Modality Mammography Narrative 06/09/2021 3:46 PM EST Patient Name: KARINA LUGO STUDY: DIGITAL SCREENING BILATERAL MAMMOGRAM WITH BREAST TOMOSYNTHESIS AND WITH CAD; 06/06/2021 4:29 pm INDICATION: Routine screening. COMPARISON: 05/28/2017 ACCESSION NUMBER(S): [id number] ORDERING CLINICIAN: ZIGGY LANDA FINDINGS: 2D and tomosynthesis images were reviewed at 1 mm slice thickness. Images were obtained in MLO and CC projections. The breast tissue is heterogeneously dense, which may obscure small masses. No suspicious masses or calcifications are identified. There are stable areas of asymmetry bilaterally. This study was interpreted with CAD. IMPRESSION: No mammographic evidence of malignancy. BI-RADS CATEGORY: Category: 1 - Negative. Recommendation: 1 Year Screening. Procedure Note Sukhwinder Mario MD - 06/01/2022 Patient Name: KARINA LUGO STUDY: DIGITAL SCREENING BILATERAL MAMMOGRAM WITH BREAST TOMOSYNTHESIS AND WITH CAD; 06/06/2021 4:29 pm INDICATION: Routine screening. COMPARISON: 05/28/2017 ACCESSION NUMBER(S): [id number] ORDERING CLINICIAN: ZIGGY LANDA FINDINGS: 2D and tomosynthesis images were reviewed at 1 mm slice thickness. Images were obtained in MLO and CC projections. The breast tissue is heterogeneously dense, which may obscure small masses. No suspicious masses or calcifications are identified. There are stable areas of asymmetry bilaterally. This study was interpreted with CAD. IMPRESSION: No mammographic evidence of malignancy. BI-RADS CATEGORY: Category: 1 - Negative. Recommendation: 1 Year Screening. Ziggy Landa MD IMG BI PROCEDURES Final Re sult from Last 3 Months or Most Recently Relevant to Health Maintenance Insurance [employer]OYEE [employer] Care Teams Honeycomb Blanket Maker Relationship Specialty Start Date End Date Glenda Hebert MD [address] [place] [address] PCP - General 08/26/18
--- OUTSIDE RECORDS SUMMARY | 2025-01-11 01:49 | XMS_ITS | Encounter Summary ---
Author Organization [facility] Address [address] [place] [address] Phone Care Team Providers Care Physician Primary Care Sports Medicine Name Role Phone Glenda Hebert MD Primary Care Provide r Marco Agarwal MD Unavailable [phone] Marco Agarwal MD Unavailable [phone] Encounter Details Date Type Department Care Team (Late st Contact Info) Description 04/21/2023 Patient Risk Score ACO Care Management [address] [facility] [address] [place] [address] Social History Tobacco Use Types [...] on filedocumented in this encounter Care Teams Physician Primary Care Sports Medicine Relationship Specialty Start Date End Date Glenda Hebert MD [address] [place] [address] PCP - General 08/26/18 Marco Agarwal MD [address] [facility] [address] [place] [address] PCP - Employee ACO PCP 04/19/23 Marco Agarwal MD [address] [facility] [address] [place] [address] PCP - Employee ACO PCP 03/19/24 documented as of this encounter
--- OUTSIDE RECORDS SUMMARY | 2025-01-11 01:49 | XMS_ITS | Encounter Summary ---
Author Organization [facility] Address [address] [place] [address] Phone Care Team Providers Care Insulation Batting Machine Operator Name Role Phone Glenda Hebert MD Primary Care Provide r Marco Agarwal MD Unavailable [phone] Marco Agarwal MD Unavailable [phone] Encounter Details Date Type Department Care Team (Late st Contact Info) Description 05/23/2023 Patient Risk Score ACO Care Management [address] [facility] [address] [place] [address] Social History Tobacco Use Types [...] on filedocumented in this encounter Care Teams Insulation Batting Machine Operator Relationship Specialty Start Date End Date Glenda Hebert MD [address] [place] [address] PCP - General 08/26/18 Marco Agarwal MD [address] [facility], [facility] [address] [place] [address] PCP - Employee ACO PCP 04/19/23 Marco Agarwal MD [address] [facility] [address] [place] [address] PCP - Employee ACO PCP 03/19/24 documented as of this encounter
--- OUTSIDE RECORDS SUMMARY | 2025-01-11 01:49 | XMS_ITS | Encounter Summary ---
Author Organization [facility] Address [address] [place] [address] Phone Care Team Providers Care Assistant Child Care Teacher Name Role Phone Glenda Hebert MD Primary Care Provide r Marco Agarwal MD Unavailable [phone] Marco Agarwal MD Unavailable [phone] Encounter Details Date Type Department Care Team (Late st Contact Info) Description 07/22/2023 Patient Risk Score ACO Care Management [address] [facility] [address] [place] [address] Social History Tobacco Use Types [...] on filedocumented in this encounter Care Teams Assistant Child Care Teacher Relationship Specialty Start Date End Date Glenda Hebert MD [address] [place] [address] PCP - General 08/26/18 Marco Agarwal MD [address] [facility], [facility] [address] [place] [address] PCP - Employee ACO PCP 04/19/23 Marco Agarwal MD [address] [facility] [address] [place] [address] PCP - Employee ACO PCP 03/19/24 documented as of this encounter
--- OUTSIDE RECORDS SUMMARY | 2025-01-11 01:49 | XMS_ITS | Encounter Summary ---
Author Organization [facility] Address [address] [place] [address] Phone Care Team Providers Care Doweling Machine Operator Name Role Phone Glenda Hebert MD Primary Care Provide r Marco Agarwal MD Unavailable [phone] Marco Agarwal MD Unavailable [phone] Encounter Details Date Type Department Care Team (Late st Contact Info) Description 11/21/2023 Patient Risk Score ACO Care Management [address] [place] [address] Social History Tobacco Use Types Packs/Day Years Used Date Smoking Tobacco: Never Assessed Comments Unknown Sex and Gender Information Value Date Recorded Sex Assigned at Not on file Legal Sex Female 4:57 AM EST Gender Identity Not on file Sexual Orientation Not on file COVID-19 Exposure Response Date Recorded In the last 10 days, have yo u been in contact with someone who was confirmed or suspected to have Coronavirus/COVID-19? No / Unsure 11/23/2023 7:52 AM EDT documented as of this encounter Functional Status * Question Answer Date of Assessment Author BP 147/77 11/23/2023 7:48 AM EDT Lulu Butler EMT Pulse 85 11/23/2023 7:48 AM EDT Lulu Butler EMT * Fitzgerald Fall Risk Question Answer Date of Assessment Author History of Falling, Immediat e or Within 3 Months 0 11/23/2023 7:53 AM EDT Lulu Butler EMT Secondary Diagnosis 0 11/23/2023 7:53 AM ED T Lulu Butler EMT Ambulatory Aid 0 11/23/2023 7:53 AM EDT Lulu Iverson se, EMT Intravenous Therapy/Heparin Lock 0 11/23/19 7:53 AM EDT Lulu Butler EMT Gait/Transferring 0 11/23/2023 7:53 AM Lulu Aguilar EMT Mental Status 0 11/23/2023 7:53 AM EDT Lulu Hansen EMT Fitzgerald Fall Risk Score 0 11/23/2023 7:53 AM EDT Lulu Butler EMT * Communicable Disease Screening Question Answer Date of Assessment Author Do you have any of the following new or worsening symptoms? None of these 11/23/2023 7:52 AM Lulu Aguilar EMT * Abuse Screen Question Answer Date of Assessment Author Have you had any thoughts of harming anyone else? No 11/23/2023 7:53 AM Lulu Aguilar EMT Are there any apparent signs of injuries/behaviors that could be related to abuse/neglect? No 11/23/2023 7:53 AM Saw Aguilar EMT Are you or have you been thr eatened or abused physically, emotionally, or sexually by anyone? No 11/23/2023 7:53 AM Lulu Aguilar EMT Has anyone ever threatened t o hurt your family or your pets? No 11/23/2023 7:53 AM Saw Aguilar EMT Does anyone try to keep you from having/contacting other friends or doing things outside your home? No 11/23/2023 7:53 AM Lulu Aguilar EMT Do you feel UNSAFE going [place] to the place where you are living? No 11/23/2023 7:53 AM Mingo Aguilar EMT Do you feel anyone has explo ited or taken advantage of you financially or of your personal property? No 11/23/2023 7:53 AM Rafi Aguilar EMT Abuse Screen Adult 11/23/2023 7:53 AM Lulu Aguilar EMT * Calculated C-SSRS Risk Score (Lifetime/Recent) Answer Date of Assessment Author No Risk Indicated 11/23/2023 7:53 AM Lulu Aguilar EMT * [place] Suicide Severity Rating Scale (Screener/Recent Self-Report) Question Answer Date of Assessment Author 1. Wish to be (Past 1 Month) No 024 7:53 AM EDT Lulu Butler, EMT 2. Non-Specific Active Suici jennifer Thoughts (Past 1 Month) No 11/23/2023 7:53 AM Lulu Aguilar, EMT 6. Suicidal Behavior (Lifetime) No 4 7:53 AM EDT Lulu Butler, EMT documented as of this encounter Plan of Treatment Not on file documented as of this encounter Visit Diagnoses Not on filedocumented in this encounter Care Teams Doweling Machine Operator Relationship Specialty Start Date End Date Glenda Hebert MD [address] [place] [address] PCP - General 08/26/18 Marco Agarwal MD [address] [address] PCP - Employee ACO PCP 04/19/23 Marco Agarwal MD [address] [address] PCP - Employee ACO PCP 03/19/24 documented as of this encounter
--- OUTSIDE RECORDS SUMMARY | 2025-01-11 01:49 | XMS_ITS | Encounter Summary ---
Author Organization [facility] Address [address] [place] [place] [address] Care Team Providers Care Flume Maker Name Role Phone Glenda Hebert MD Primary Care Provider [phone] Glenda Hebert MD Unavailable [phone] Encounter Details Date Type Department Care Team (Late st Contact Info) Description 11/03/2023 Clinisync Result Encounter [facility] External Department Unsolicited Provider, Generic External Data Social History Tobacco Use Types Packs/Day Years Used Date Smoking Tobacco: Never Assessed Comments Unknown Sex and Gender Information Value Date Recorded Sex Assigned at Not on file Legal Sex Female 6:44 PM EDT Gender Identity Not on file Sexual Orientation Not on file documented as of this encounter Plan of Treatment Not on file documented as of this encounter Procedures Procedure Name Priority Date/Time Associated Diagnosis Comments MR LUMBAR SPINE WO IV CONTRAST 11/03/2023 11:53 AM EDT documented in this encounter Results * MR LUMBAR SPINE WO IV CONTRAST (11/03/2023 11:53 AM EDT) Anatomical Region Laterality Modality Other 11/03/2023 11:5 3 AM EDT Narrative 11/03/2023 2:02 PM EDT Interpreted By: Lance Araujo and Ebai Jerky STUDY: MR LUMBAR SPINE WO IV CONTRAST; 11/03/2023 1:20 pm INDICATION: Signs/Symptoms:sciatica. COMPARISON: None. ACCESSION NUMBER(S): [id number] ORDERING CLINICIAN: LETY LOUIS TECHNIQUE: Sagittal T1, T2, STIR, axial T1 and T2 weighted images of the lumbar spine were acquired. FINDINGS: Alignment: Mild levoscoliosis of the lumbar spine. Vertebrae/Intervertebral Discs: The vertebral body demonstrate expected height. No evidence of an acute fracture. The marrow signal is within normal limits. No marrow replacing lesion. Multilevel disc desiccation and disc height loss with endplate degenerative changes and osteophytic spurring. There are Schmorl's nodes along the inferior T11, superior T12 and superior L2 endplates. No endplate marrow reactive changes. Conus: The lower thoracic cord appears unremarkable. The conus terminates at L2. T12-L1: Right central/paracentral disc osteophyte complex with mild effacement of the ventral CSF. There has effacement of the right subarticular recess. There is mild central canal stenosis. No significant neural foraminal stenosis. L1-2: Disc bulge with superimposed central disc herniation. There is mild spinal canal stenosis. There is effacement of the yious-nnbkkpf-ziqk-left subarticular recess. No significant neural foraminal stenosis. L2-3: Mild disc bulge, facet osteoarthrosis and ligamentum flavum hypertrophy. There is mild spinal canal stenosis. No significant neural foraminal stenosis. L3-4: Mild disc bulge asymmetrical to the left, ligamentum flavum hypertrophy and facet osteoarthrosis. There is mild spinal canal stenosis. No significant neural foraminal stenosis. L4-5: Disc bulge, facet osteoarthrosis and ligamentum flavum hypertrophy resulting in moderate spinal canal stenosis asymmetrical to the left. There has effacement of the bilateral subarticular recess and likely compression of the descending locw-pncnfog-rnpr-right L5 nerve roots. Mild bilateral neural foraminal stenosis L5-S1: Disc bulge asymmetric to the left and facet osteoarthrosis without significant central spinal stenosis. There has effacement of the left subarticular recess. There is contacting of the descending S1 nerve root. Moderate left and mild right neural foraminal stenosis. The prevertebral and posterior paraspinous soft tissues are unremarkable. IMPRESSION: Multilevel degenerative changes of the lumbar spine most pronounced for L4-L5 moderate spinal canal stenosis. No high-grade neural foraminal stenosis. I personally reviewed the images/study and I agree with the findings as stated by Resident Marni Gtz. This study was interpreted at [place], [place]. MACRO: None Signed by: Lance Araujo 11/03/2023 2:02 PM Dictation workstation: [id number] Procedure Note Radiology, Radiologist, - 11/03/2023 Interpreted By: Lance Araujo and Ebai Jerky STUDY: MR LUMBAR SPINE WO IV CONTRAST; 11/03/2023 1:20 pm INDICATION: Signs/Symptoms:sciatica. COMPARISON: None. ACCESSION NUMBER(S): [id number] ORDERING CLINICIAN: LETY LOUIS TECHNIQUE: Sagittal T1, T2, STIR, axial T1 and T2 weighted images of the lumbar spine were acquired. FINDINGS: Alignment: Mild levoscoliosis of the lumbar spine. Vertebrae/Intervertebral Discs: The vertebral body demonstrate expected height. No evidence of an acute fracture. The marrow signal is within normal limits. No marrow replacing lesion. Multilevel disc desiccation and disc height loss with endplate degenerative changes and osteophytic spurring. There are Schmorl's nodes along the inferior T11, superior T12 and superior L2 endplates. No endplate marrow reactive changes. Conus: The lower thoracic cord appears unremarkable. The conus terminates at L2. T12-L1: Right central/paracentral disc osteophyte complex with mild effacement of the ventral CSF. There has effacement of the right subarticular recess. There is mild central canal stenosis. No significant neural foraminal stenosis. L1-2: Disc bulge with superimposed central disc herniation. There is mild spinal canal stenosis. There is effacement of the cikkj-sldywto-mfla-left subarticular recess. No significant neural foraminal stenosis. L2-3: Mild disc bulge, facet osteoarthrosis and ligamentum flavum hypertrophy. There is mild spinal canal stenosis. No significant neural foraminal stenosis. L3-4: Mild disc bulge asymmetrical to the left, ligamentum flavum hypertrophy and facet osteoarthrosis. There is mild spinal canal stenosis. No significant neural foraminal stenosis. L4-5: Disc bulge, facet osteoarthrosis and ligamentum flavum hypertrophy resulting in moderate spinal canal stenosis asymmetrical to the left. There has effacement of the bilateral subarticular recess and likely compression of the descending fyyl-ptnknhc-hcid-right L5 nerve roots. Mild bilateral neural foraminal stenosis L5-S1: Disc bulge asymmetric to the left and facet osteoarthrosis without significant central spinal stenosis. There has effacement of the left subarticular recess. There is contacting of the descending S1 nerve root. Moderate left and mild right neural foraminal stenosis. The prevertebral and posterior paraspinous soft tissues are unremarkable. IMPRESSION: Multilevel degenerative changes of the lumbar spine most pronounced for L4-L5 moderate spinal canal stenosis. No high-grade neural foraminal stenosis. I personally reviewed the images/study and I agree with the findings as stated by Resident Marni Gtz. This study was interpreted at [facility], [place], [place]. MACRO: None Signed by: Lance Araujo 11/03/2023 2:02 PM Dictation workstation: [id number] us Generic External Data Provider [facility] Final Result documented in this encounter Visit Diagnoses Not on filedocumented in this encounter Care Teams Flume Maker Relationship Specialty Start Date End Date Glenda Hebert MD [address] [place] [address] PCP - General Family Medicine 08/25/22 11/24/23 Glenda Hebert MD [address] [place] [address] Referring Physician Family Medicine 08/21/24 documented as of this encounter
--- OUTSIDE RECORDS SUMMARY | 2025-01-11 01:49 | XMS_ITS | Encounter Summary ---
Author Organization [facility] Address [address] [place] [address] Phone Care Team Providers Care Transporter Radiology Name Role Phone Glenda Hebert MD Primary Care Provide r Macy Naqvi MD Unavailable Marco Agarwal MD Unavailable [phone] Marco Agarwal MD Unavailable [phone] Encounter Details Date Type Department Care Team (Late st Contact Info) Description 12/20/2022 Patient Risk Score ACO Care Management [address] [facility] [address] [place] [address] Social History Tobacco Use Types [...] on filedocumented in this encounter Care Teams Transporter Radiology Relationship Specialty Start Date End Date Glenda Hebert MD [address] [place] [address] PCP - General 08/26/18 [place] [address] [place] [address] PCP - Employee ACO PCP 10/17/22 Marco Agarwal MD [address] [facility], [facility] [address] [place] [address] PCP - Employee ACO PCP 04/19/23 Marco Agarwal MD [address] [facility], [facility] [address] [place] [address] PCP - Employee ACO PCP 03/19/24 documented as of this encounter
--- OUTSIDE RECORDS SUMMARY | 2025-01-11 01:50 | XMS_ITS | Encounter Summary ---
Author Organization [facility] Address [address] [place] [address] Phone Care Team Providers Care Slurry Plant Operator Name Role Phone Glenda Hebert MD Primary Care Provide r Marco Agarwal MD Unavailable [phone] Marco Agarwal MD Unavailable [phone] Encounter Details Date Type Department Care Team (Late st Contact Info) Description 06/21/2023 Patient Risk Score ACO Care Management [address] [facility] [address] [place] [address] Social History Tobacco Use Types [...] on filedocumented in this encounter Care Teams Slurry Plant Operator Relationship Specialty Start Date End Date Glenda Hebert MD [address] [place] [address] PCP - General 08/26/18 Marco Agarwal MD [address] [facility], [facility] [address] [place] [address] PCP - Employee ACO PCP 04/19/23 Marco Agarwal MD [address] [facility] [address] [place] [address] PCP - Employee ACO PCP 03/19/24 documented as of this encounter
--- OUTSIDE RECORDS SUMMARY | 2025-01-11 01:50 | XMS_ITS | Encounter Summary ---
Author Organization [facility] Address [address] [place] [address] Phone Care Team Providers Care Educational Administrator Name Role Phone Glenda Hebert MD Primary Care Provide r Encounter Details Date Type Department Care Team ([facility] st Contact Info) Description 07/21/2024 Patient Risk Score ACO Care Management [address] [place] [address] Social History Tobacco Use Types Packs/Day Years Used Date Smoking Tobacco: Every Day Cigarettes Smokeless Tobacco: Never Alcohol Use Standard Drinks/Week Comments Never 0 [...] on filedocumented in this encounter Care Teams Educational Administrator Relationship Specialty Start Date End Date Glenda Hebert MD [address] [place] [address] PCP - General 08/26/18 documented as of this encounter
--- OUTSIDE RECORDS SUMMARY | 2025-01-11 01:50 | XMS_ITS | Encounter Summary ---
Author Organization [facility] Address [address] [place] [address] Phone Care Team Providers Care Book Mender Name Role Phone Glenda Hebert MD Primary Care Provide r Marco Agarwal MD Unavailable [phone] Encounter Details Date Type Department Care Team (Late st Contact Info) Description 02/21/2024 Patient Risk Score ACO Care Management [address] [facility] [address] [place] [id number] Social History Tobacco Use Types Packs/Day Years [...] on filedocumented in this encounter Care Teams Book Mender Relationship Specialty Start Date End Date Glenda Hebert MD [address] [place] [address] PCP - General 08/26/18 Marco Agarwal MD [address] [facility], [facility] [address] [place] [address] PCP - Employee ACO PCP 03/19/24 documented as of this encounter
--- OUTSIDE RECORDS SUMMARY | 2025-01-11 01:50 | XMS_ITS | Encounter Summary ---
Author Organization [facility] Address [address] [place] [address] Phone Care Team Providers Care Sheet Metal Worker Helper Name Role Phone Glenda Hebert MD Primary Care Provide r Marco Agarwal MD Unavailable [phone] Marco Agarwal MD Unavailable [phone] Encounter Details Date Type Department Care Team (Late st Contact Info) Description 12/09/2023 Community Care Management [address] [address] [facility] PhysicianMD [address] [place] [address] Social History Tobacco Use Types Packs/Day Years [...] AM EDT documented as of this encounter Plan of Treatment Not on file documented as of this encounter Visit Diagnoses Not on filedocumented in this encounter Care Teams Sheet Metal Worker Helper Relationship Specialty Start Date End Date Glenda Hebert MD [address] [place], [place] [id number] PCP - General 08/26/18 Marco Agarwal MD [address] [place] [address] PCP - Employee ACO PCP 04/19/23 Marco Agarwal MD [address] [place] [address] PCP - Employee ACO PCP 03/19/24 documented as of this encounter
--- OUTSIDE RECORDS SUMMARY | 2025-01-11 01:50 | XMS_ITS | Encounter Summary ---
Author Organization [facility] Address [address] [place] [address] Phone Care Team Providers Care Rehabilitation Aide/Scheduler Name Role Phone Glenda Hebert MD Primary Care Provide r Marco Agarwal MD Unavailable Encounter Details Date Type Department Care Team (Late st Contact Info) Description 03/22/2024 Patient Risk Score ACO Care Management [address] [facility] [address] [place] [id number] Social History Tobacco Use Types Packs/Day Years [...] on filedocumented in this encounter Care Teams Rehabilitation Aide/Scheduler Relationship Specialty Start Date End Date Glenda Hebert MD [address] [place] [address] PCP - General 08/26/18 Marco Agarwal MD [address] [facility], [facility] [address] [place] [address] PCP - Employee ACO PCP 03/19/24 documented as of this encounter
--- OUTSIDE RECORDS SUMMARY | 2025-01-11 01:50 | XMS_ITS | Encounter Summary ---
Author Organization [facility] Address [address] [place] [address] Phone Care Team Providers Care Casting Operator Name Role Phone Glenda Hebert MD Primary Care Provide r Marco Agarwal MD Unavailable [phone] Marco Agarwal MD Unavailable [phone] Encounter Details Date Type Department Care Team (Late st Contact Info) Description 01/21/2024 Patient Risk Score ACO [facility] [address] [facility] [address] [place] [address] Social History Tobacco Use Types [...] on filedocumented in this encounter Care Teams Casting Operator Relationship Specialty Start Date End Date Glenda Hebert MD [address] [place] [address] PCP - General 08/26/18 Marco Agarwal MD [address] [facility], [address] [place], [place] [id number] PCP - Employee ACO PCP 04/19/23 Marco Agarwal MD [address] [facility], [place] [address] PCP - Employee ACO PCP 03/19/24 documented as of this encounter
--- OUTSIDE RECORDS SUMMARY | 2025-01-11 01:50 | XMS_ITS | Encounter Summary ---
Author Organization [facility] Address [address] [place] [address] Phone Care Team Providers Care Air Compressor Mechanic Name Role Phone Glenda Hebert MD Primary Care Provide r Encounter Details Date Type Department Care Team ([facility] st Contact Info) Description 06/20/2024 Patient Risk Score ACO Care Management [address] [place] [address] Social History Tobacco Use Types [...] on filedocumented in this encounter Care Teams Air Compressor Mechanic Relationship Specialty Start Date End Date Glenda Hebert MD [address] [place] [address] PCP - General 08/26/18 documented as of this encounter
[2025-01-11] MEDS: AMOXICILLIN/POT CLAV 875-125 MG TABLET 1 TAB PO (02:49)
[2025-01-11] MEDS: METHYLPREDNISOLONE SOD SUCC PF 125 MG/2 ML VIAL IM (02:49)
[2025-01-11] MEDS: KETOROLAC TROMETHAMINE 60 MG/2 ML VIAL IM (02:49)
[2025-01-11] MEDS: ONDANSETRON 4 MG RAPDIS TABLET SL (02:50)
[2025-01-11] MEDS: HYDROCODONE/ACET 5-325 MG TABLET PO (02:50)
== END 2025-01-11 03:03 | disposition home or self-care (01) ==
PROVIDERS: Emergency Provider Emergency Medicine
DX: L03.116 Cellulitis of left lower limb (principal); M54.32 Sciatica, left side
CPT/HCPCS: 73630; 80053; 85652; 86140; 96372; 99284; J1885; J2919; Q0162